=== PATIENT | female | born 1990 | race Caucasian/White ===

== ENCOUNTER 2017-12-29 06:47 | Day surgery (SDC) | payer OTHER ==
[~2017-12-29] VITALS: Ht 149.9 cm; Wt 73.5 kg
[2017-12-29] VITALS (7 sets, daily range): BP systolic 87–115; BP diastolic 53–66; PULSE 63–73; TEMP 97.5–98.2
[2017-12-29] MEDS ORDERED: NORCO 325 MG-51 TAB PO (09:40)
== END 2017-12-29 13:30 | disposition home or self-care (01) ==
LOC: SDCO 06:47
DX: K81.1 Chronic cholecystitis (principal); F17.210 Nicotine dependence, cigarettes, uncomplicated
CPT/HCPCS: J0690; J1100; J1885; J2175; J2405; J2704; J3010; J7120

== ENCOUNTER → 2021-08-13 | Outpatient (CLI) | payer BC ==
[~2021-08-13] MED LIST: NORCO 325 MG-51 TAB PO
== END ==
LOC: COL.RAD 14:59
DX: R10.31 Right lower quadrant pain (principal); R11.2 Nausea with vomiting, unspecified; R19.7 Diarrhea, unspecified
CPT/HCPCS: Q9967

== ENCOUNTER 2021-10-08 13:10 | Day surgery (SDC) | payer BC ==
[~2021-10-08] VITALS: Ht 149.9 cm; Wt 74.8 kg
[2021-10-08 13:26] VITALS: BP 121/94; PULSE 75; TEMP 97.8
[2021-10-08] MEDS ORDERED: PRILOTC PO (13:32)
[2021-10-08 14:20] VITALS: BP 97/66; PULSE 85; TEMP 97.2
[2021-10-08 14:35] VITALS: BP 103/70; PULSE 70
[2021-10-08 14:50] VITALS: BP 101/63; PULSE 71
[2021-10-08 15:05] VITALS: BP 110/76; PULSE 71
--- NOTE | 2021-10-08 15:37 | NUR ---
1420: Patient arrived back into [facility] following endo procedure. Report received from MARLYN Tran. Patient alert and awake. Requesting apple juice and pudding. Vital signs stable. Call light left within reach. 1450: Patient vitally stable. Tolerated food and drink well. Denies pain or nausea at this time. 1505: IV removed without complications. Vitally stable. Denies pain or nausea and tolerating food and drink. 1520: MD in to see patient 1530: Patient tolerated food and drink well. Meets discharge criteria went through discharge instructions with patient. Questions answered. Patient escorted to patient entrance via ambulation and left in the care of her friend, Taylor.
== END 2021-10-08 15:30 | disposition home or self-care (01) ==
LOC: SDCO 13:10
DX: K29.30 Chronic superficial gastritis without bleeding (principal); K58.0 Irritable bowel syndrome with diarrhea; K21.9 Gastro-esophageal reflux disease without esophagitis; F17.210 Nicotine dependence, cigarettes, uncomplicated; Z79.899 Other long term (current) drug therapy
CPT/HCPCS: J2704; J7120

== ENCOUNTER → 2023-03-09 | Outpatient (CLI) | payer OTHER ==
[~2023-03-09] MED LIST changes: +ADIPEX-P37.5 MG PO; +PRILOTC PO; +TOPAMAX 25MG25 M1 PO; +ZOFRAN ODT4 MG PO
[2023-03-09 16:42] LABS: BASO # 0.1 K/mm3 (0.0-0.2); BASO % 0.6 % (0.0-2.0); EOS # 0.6 K/mm3 (0.0-0.7); EOS % 5.7 % (0.0-4.0); GRAN # 5.8 K/mm3 (1.4-6.5); GRAN % 54.3 % (42.2-75.2); HEMATOCRIT 44.6 % (37.0-47.0); LYMPH # 3.5 K/mm3 (1.2-3.4); LYMPH % 32.5 % (20.0-51.0); MEAN CELL VOLUME 91 fl (80.0-100.0); MEAN CORPUSCULAR HEMOGLOBIN 31 pg (27-31); MEAN CORPUSCULAR HGB CONC 34 g/dl (33.0-37.0); MEAN PLATELET VOLUME 9.5 fl (7.4-10.4); MONO # 0.7 K/mm3 (0.1-0.6); MONO % 6.6 % (1.7-9.3); PLATELET COUNT 274 K/mm3 (130-400); RED BLOOD COUNT 4.92 M/mm3 (4.10-5.30); REDCELL DISTRIBUTION WIDTH-CV 13.2 % (11.5-14.5)
== END ==
LOC: COL.LAB 16:06
PROVIDERS: Internal Medicine Pulmonary Disease
DX: R06.02 Shortness of breath (principal)

== ENCOUNTER → 2023-03-28 | Outpatient (CLI) | payer OTHER | LOC: COL.LAB 11:07 | DX: M25.50 Pain in unspecified joint (principal); M54.50 Low back pain, unspecified ==

== ENCOUNTER → 2024-01-11 | Outpatient (CLI) | payer OTHER | LOC: COL.RAD 08:10 | DX: M51.37 Other intervertebral disc degeneration, lumbosacral region (principal) ==